=== PATIENT | female | born 2005 | race Two or more races ===

== ENCOUNTER 2024-06-18 08:25 | Emergency (ER) | payer OTHER ==
--- NOTE | 2024-06-18 09:00 | ED Physician Documentation ---
PD HPI NVD - Stated complaint Stated Complaint: NAUSEA, ANXIETY - Chief complaint Chief Complaint: Abd Pain - History obtained from History obtained from: Patient - History of Present Illness Timing - onset: How many months ago (2) Timing - duration: Months (2) Timing - details: Gradual onset, Still present (more consistent the past 1-2 weeks.), Intermittant, Waxing and waning Associated symptoms: Other (nausea and upper abd/esophageal pain mostly at night lying down, and with some foods. Has been sleeping in recliner as feels better more upright.) Similar symptoms before: No diagnosis (feels anxious when symptoms occur, but anxiety does not precede it, and no anxiety episodes during the day per pt.) Recently seen: Clinic ([facility] and told to take Pepcid PRN. No other Rx.) PD PAST MEDICAL HISTORY - Past Medical History Past Medical History: No - Past Surgical History Past Surgical History: No - Present Medications Home Medications: Ambulatory Orders Medication Instructions Recorded Confirmed Ondansetron Odt [Zofran] 4 mg TL Q6H PRN #10 tablet 06/18/24 Pantoprazole [Protonix] 40 mg PO DAILY 30 Days #30 tablet 06/18/24 Sucralfate [Carafate] 1 gm PO ACHS 7 Days #280 ml 06/18/24 traZODone [Desyrel] 25 mg PO HS PRN #5 tablet 06/18/24 - Allergies Allergies/Adverse Reactions: Allergies Allergy/AdvReac Type Severity Reaction Status Date / Time No Known Drug Allergies Allergy Verified 06/18/24 08:30 - Social History Does the pt smoke?: No Smoking Status: Never smoker Does the pt drink ETOH?: No Does the pt have substance abuse?: No - Immunizations Immunizations are current?: Yes PD ED PE NORMAL - Vitals Vital signs reviewed: Yes - General General: Alert and oriented X 3, Well developed/nourished, Other - Abdomen Abdomen: Normal bowel sounds, Soft, Non distended, Other (minimally tender without guarding in epigastric area. ) Results - Vitals Vitals: Vital Signs - 24 hr 06/18/24 10:29 Temperature 36.3 C L Heart Rate 71 Respiratory 18 Rate Blood Pressure 127/76 O2 Saturation 100 PD Medical Decision Making - ED course Complexity details: reviewed results (I did not see role for labs. She is not tender in abd. Symptoms do not sound biliary. Can treat for GERD/esophagitis with outpt followup. She is concerned about the anxiety with it and poor sleep. The sleep sounds disrupted by esoph sxs, but can give med short term for insomnis/anxiety. ), considered differential (she describes upper abd to esophageal discomfort intermittently leading to feeling of anxiety with it. Noted most often during night and in AM, and has been sleeping in recliner upright as it feels better. Taking pepto at times without help. [place]N.), d/w patient Departure - Departure Disposition: Home, Self Care Clinical Impression: Nausea, Reflux esophagitis, Anxiety Condition: Stable Record reviewed to determine appropriate education?: Yes Instructions: Acid Reflux, ED GERD Follow-Up: [facility] [Provider Group] Prescriptions: Sucralfate [Carafate] 1 gm PO ACHS 7 Days #280 ml traZODone [Desyrel] 25 mg PO HS PRN #5 tablet PRN Reason: Insomnia Pantoprazole [Protonix] 40 mg PO DAILY 30 Days #30 tablet Ondansetron Odt [Zofran] 4 mg TL Q6H PRN #10 tablet PRN Reason: Nausea / Vomiting Comments: Your symptoms sound like some irritation of the stomach and refluxing of acid and irritation of the esophagus. I would suggest acid reducing medicine pantoprazole daily for the next month. I would also suggest coating the esophagus and stomach several times daily for the next 2 to 3 days and then nightly for the next couple of weeks. This is with a medication called sacral fate. It is like an antacid only as "stickier" and lasts longer. If you are having trouble sleeping/anxiety, I did write a prescription for a medication called trazodone which is a sleep medication. We could try half a tablet nightly if needed for anxiety/insomnia. However I would suggest the short-term as I think your symptoms that are giving you the anxiety and trouble sleeping are the irritation of the stomach/esophagus and that should improve with the initial medications for acid reduction and coating the stomach. Add Tylenol if needed for pains. No NSAIDs as that can further irritate your stomach. I sent your prescription to your preferred pharmacy. I also wrote 1 called Zofran if needed for nausea. Forms: PCP List Discharge Date/Time: 06/18/24 10:30
[2024-06-18] MEDS: ONDANSETRON ODT 4 MG TABLET TL STA (09:42)
[2024-06-18] MEDS: FAMOTIDINE 20 MG TABLET PO STA (09:42)
[2024-06-18] MEDS: MAG HYDROX/AL HYDROX/SIMETH 30 ML UDC PO STA (09:42)
[2024-06-18 10:37] VITALS: BP 127/76; O2SAT 100
== END 2024-06-18 10:30 | disposition home or self-care (01) ==
LOC: ED 08:25
DX: R11.0 Nausea (principal); K21.00 Gastro-esophageal reflux disease with esophagitis, without bleeding; F41.9 Anxiety disorder, unspecified; N93.9 Abnormal uterine and vaginal bleeding, unspecified
CPT/HCPCS: 76856; 99283; A9270; Q0162

== ENCOUNTER 2024-06-18 19:03 | Outpatient (CLI) | payer OTHER ==
--- NOTE | 2024-06-20 20:58 | Ultrasound Report ---
PROCEDURE: Pelvic Complete INDICATIONS: AUB TECHNIQUE: Real-time transabdominal scanning was performed of the pelvic organs, with image documentation. COMPARISON: None FINDINGS: Uterus: Uterus is anteverted and normal in size at 7.3 x 3 x 4.1 cm. The myometrium is homogeneous. The endometrium measures 9 mm in combined thickness. No endometrial mass or fluid. Ovaries: The right ovary measures 3.7 x 1.9 x 2.4 cm, with a calculated ovarian volume of 8.8 cc. T he left ovary measures 3.4 x 1.8 x 3.3 cm, with a calculated ovarian volume of 10.3 cc. The ovaries have a normal sonographic appearance. Greater than than 12 follicles can be seen in each ovary. No a dnexal mass. No cystic lesions measures greater than 3 cm in size. IMPRESSION: 1. Normal-appearing uterus and endometrium. 2. Greater than 12 follicles are seen in each ovary. This can be seen associated with clinical diagno sis of polycystic ovary syndrome suggest clinical correlation and follow-up. No adnexal mass. Reviewed by: Casey Lugo MD on 06/20/2024 8:56 PM PDT Approved by: Casey Lugo MD on 06/20/2024 8:56 PM PDT Station ID: [id number]
== END 2024-06-18 19:04 | disposition home or self-care (01) ==
LOC: DI 19:03
PROVIDERS: ATTEND Nurse Practitioner Family
DX: N93.9 Abnormal uterine and vaginal bleeding, unspecified (principal)